=== PATIENT | female | born 1940 | race Caucasian/White ===

== ENCOUNTER → 2023-09-27 06:20 | Day surgery (SDC) | payer OTHER, SELFPAY ==
[2023-09-27 07:51] LABS: Glucose - Point of Care 125 mg/dl (70-99)
== END ==
LOC: GI 06:20
PROVIDERS: ATTENDING PHYSICIAN Internal Medicine
DX: R13.10 Dysphagia, unspecified (principal); Q39.9 Congenital malformation of esophagus, unspecified; K44.9 Diaphragmatic hernia without obstruction or gangrene; K21.01 Gastro-esophageal reflux disease with esophagitis, with bleeding; K31.89 Other diseases of stomach and duodenum
CPT/HCPCS: 43239; 88305; 82962; 88342

== ENCOUNTER → 2023-11-08 06:22 | Day surgery (SDC) | payer OTHER, SELFPAY ==
[2023-11-08 07:28] LABS: Glucose - Point of Care 124 mg/dl (70-99)
== END ==
LOC: GI 06:22
PROVIDERS: ATTENDING PHYSICIAN Internal Medicine
DX: Z12.11 Encounter for screening for malignant neoplasm of colon (principal); D12.0 Benign neoplasm of cecum; D12.2 Benign neoplasm of ascending colon; K63.5 Polyp of colon; K57.30 Diverticulosis of large intestine without perforation or abscess without bleeding; K64.9 Unspecified hemorrhoids; N81.6 Rectocele; K56.2 Volvulus; Z86.010 Personal history of colon polyps
CPT/HCPCS: 45385; 45380; 88305; 82962

== ENCOUNTER → 2024-03-19 13:40 | Outpatient (REF) | payer OTHER, SELFPAY | LOC: HWWDC 13:40 | PROVIDERS: ATTENDING PHYSICIAN Internal Medicine | DX: Z12.31 Encounter for screening mammogram for malignant neoplasm of breast (principal) | CPT/HCPCS: 77063; 77067 ==

== ENCOUNTER → 2025-01-02 11:19 | Outpatient (REF) | payer OTHER, SELFPAY | LOC: HWRAD 11:19 | PROVIDERS: ATTENDING PHYSICIAN Internal Medicine | DX: M54.2 Cervicalgia (principal) | CPT/HCPCS: 72050 ==